=== PATIENT | female | born 1985 | race Caucasian/White ===

== ENCOUNTER 2021-07-01 09:57 | Emergency (ER) | payer BC, SELFPAY ==
--- NOTE | 2021-07-01 11:01 | XR_ITS ---
PROCEDURE INFORMATION: Exam: XR Left Hand Exam date and time: 07/01/2021 11:01 AM Age: 35 years old Clinical indication: Injury or trauma; Other: Smashed inbetween wood and trailer; Blunt trauma (contusions or hematomas); Hand; Left; Injury date: 06/30/21; Additional info: Accident// smashed hand between wood and trailer loading wood TECHNIQUE: Imaging protocol: XR Left hand. Views: 3 or more views. COMPARISON: No relevant prior studies available. FINDINGS: Bones/joints: No acute fracture or malalignment. Joint spaces are maintained. Soft tissues: Normal. IMPRESSION: No acute fracture or malalignment.
[2021-07-01 11:25] VITALS: BP 139/74; PULSE 82; RESP 14; TEMP 37.1; O2SAT 100; BMI 26.8
--- NOTE | 2021-07-01 11:56 | HMH.EDUTC ---
[facility] [place] Disposition Clinical Impression: Crushing injury of left hand Qualifiers: Encounter type: initial encounter Qualified Code(s): S67.22XA - Crushing injury of left hand, initial encounter Disposition: Home, Self-Care Condition on Discharge: Good Instructions: DI for Crush Injury, DI for Hand Pain Additional Instructions: Rest the extremity, apply ice for 15 minutes as tolerated three or four times per day, Elevate the extremity as tolerated while you are resting. Take ibuprofen for pain. I sent in a prescription to your pharmacy. Follow up with Dr. Estrada (orthopedics). I put in a referral but you need to call his office and schedule an appointment. Follow up with your regular doctor. GO TO THE ER FOR ANY WORSENING SYMPTOMS Prescriptions: Ibuprofen [Ibuprofen 600mg Tablet] 600 mg PO Q6HP PRN #30 tab PRN Reason: Mild Pain Transmission Status: Received by [id number] Referrals: Donavan Godoy MD [Primary Care Provider] - Ricardo Estrada MD [Staff Physician] - Forms: Work/School Release Time of Disposition: 12:01 Medical Decision Making - Medical Records Medical records reviewed: No: I reviewed the patient's medical records. - Jeremy Inquiry Pt receiving controlled substance: No Vital Signs: 07/01/21 11:25 07/01/21 12:09 Temperature 98.8 F 98.8 F Temperature Source Oral Pulse Rate 82 Pulse Rate [Left] 82 Respiratory Rate 14 18 Blood Pressure 139/74 Blood Pressure [Right Arm] 139/74 Blood Pressure Mean [Right Arm] 95 02 Sat by Pulse Oximetry 100 - Lab Data Lab results reviewed: No: I reviewed the patient's lab results. - Radiology Data #1 Image(s): Hand Image Reviewed: Yes I reviewed the patient's radiology image, Yes I have reviewed radiologist's interpretation Preliminary Findings: No Fracture Seen PROCEDURE INFORMATION: Exam: XR Left Hand Exam date and time: 07/01/2021 11:01 AM Age: 35 years old Clinical indication: Injury or trauma; Other: Smashed inbetween wood and trailer; Blunt trauma (contusions or hematomas); Hand; Left; Injury date: 06/30/21; Additional info: Accident// smashed hand between wood and trailer loading wood TECHNIQUE: Imaging protocol: XR Left hand. Views: 3 or more views. COMPARISON: No relevant prior studies available. FINDINGS: Bones/joints: No acute fracture or malalignment. Joint spaces are maintained. Soft tissues: Normal. IMPRESSION: No acute fracture or malalignment. [facility] [place] HPI - General Stated complaint: AO [id number] left hand pain, home accident Time Seen by Provider: 07/01/21 11:56 Mode of Arrival: Ambulatory Source of Information: Patient Limitations: No Limitations Description of Symptoms (Recalled from Triage Doc. by RN): pt has a crush injury to her L hand. this occured while loading firewood. HEENT Symptoms (Recalled from RN notes): No Resp Symptoms (Recalled from RN notes): No Skin Symptoms (Recalled from RN notes): No MS Symptoms (Recalled from RN notes): Yes (L hand pain) Functional Status (Recalled from RN notes): na - History of Present Illness Provider Complaint: She states that she smashed her left hand last night while stacking firewood. Her hand got caught between a piece of wood and the [place]. She his having pain at the base of her 5th finger. She denies any laceration or open wounds. - Related Data Previous Rx's Medication Instructions Recorded Ibuprofen [Ibuprofen 600mg 600 mg PO Q6HP PRN #30 tab 07/01/21 Tablet] Allergies Allergy/AdvReac Type Severity Reaction Status Date / Time diphenhydramine Allergy Unknown Unverified 08/12/17 15:17 [From BENADRYL] morphine [MORPHINE] Allergy Unknown Unverified 08/12/17 15:17 promethazine [From PHENERGAN] Allergy Unknown Unverified 08/12/17 15:17 pseudoephedrine Allergy Unknown Unverified 08/12/17 15:17 [From SUDAFED]
[2021-07-01 12:09] VITALS: BP 139/74; PULSE 82; RESP 18; TEMP 37.1
== END 2021-07-01 12:11 | disposition home or self-care (01) ==
PROVIDERS: Emergency Provider Nurse Practitioner Family; PCP Internal Medicine Adolescent Medicine
DX: S67.22XA Crushing injury of left hand, initial encounter (principal); W23.0XXA Caught, crushed, jammed, or pinched between moving objects, initial encounter; Y92.89 Other specified places as the place of occurrence of the external cause
CPT/HCPCS: 29125; 73130; 99202; G0463

== ENCOUNTER 2022-07-05 18:00 | Emergency (ER) | payer BC, SELFPAY ==
--- NOTE | 2022-07-05 18:09 | XR_ITS ---
PROCEDURE INFORMATION: Exam: XR Right Wrist Exam date and time: 07/05/2022 6:13 PM Age: 36 years old Clinical indication: Injury or trauma; Other: Smashed wrist in gun safe door; Blunt trauma (contusions or hematomas); Right TECHNIQUE: Imaging protocol: Radiologic exam of the Right wrist. Views: 3 or more views. COMPARISON: No relevant prior studies available. FINDINGS: Bones/joints: No visible fracture or dislocation. Soft tissues: Normal. IMPRESSION: No visible fracture or dislocation.
[2022-07-05 19:35] VITALS: BP 131/86; PULSE 85; RESP 19; TEMP 36.9; O2SAT 98; BMI 26.4
--- NOTE | 2022-07-05 20:01 | EXP.UTC ---
Discharge Plan Disposition Patient Disposition: Home, Self-Care Condition: Good Prescriptions Prescriptions: No Action ibuprofen 600 MG tablet 600 mg PO Q6HP PRN (Reason: Mild Pain) Qty: 30 0RF Referrals Follow up/Referrals: Provider,Referral, MD [Primary Care Provider] - See instructions Activity Restrictions/Add. Instructions Additional Instructions/Restrictions: *RICE, Rest the extremity, Ice 15-20 minutes 3-4 times daily, Compress- wear the rusty wrap as discussed as much as possible to help reduce swelling and pain, Elevate the extremity when at rest *Rusty wrap is for support and help control swelling, use it except in the shower. Be sure that is not to tight but not to loose either *Elevate when resting? *Ibuprofen 600-800mg every 6-8 hours as needed for pain an inflammation. If need something more can take Tylenol in between doses of Ibuprofen to help Immediately follow up with your family doctor for new or worsening of symptoms, or no noticeable improvement over the next 3-5 days Instructions Patient Instructions: How To Perform RICE (Rest, Ice, Compress, Elevate), How to Apply an Rusty Wrap Discharge ED Provider: Kaitlyn Rascon [facility] [place] HPI General Stated complaint: ao 07/04 injured R wrist Mode of Arrival: Ambulatory Source of Information: Patient Limitations: No Limitations Time Seen by Provider: 07/05/22 20:01 Description of Symptoms (Recalled from Triage Doc. by RN): PATIENT C/O INJURY TO RIGHT WRIST AFTER GETTING IT SMASHED BETWEEN THE DOOR AND GUN SAFE LAST NIGHT HEENT Symptoms (Recalled from RN notes): No Resp Symptoms (Recalled from RN notes): No Skin Symptoms (Recalled from RN notes): No MS Symptoms (Recalled from RN notes): Yes Functional Status (Recalled from RN notes): WNL History of Present Illness Provider Complaint: Patient states that they was moving a gun safe last night when it slipped and pinned her right wrist between the door knob and the safe States that she has been having pain in the wrist ever since Related Data Previous Rx's Medication Instructions Recorded ibuprofen 600 mg tablet 600 mg PO Q6HP PRN Mild Pain #30 07/01/21 tabs Allergies Allergy/AdvReac Type Severity Reaction Status Date / Time diphenhydramine Allergy Unknown Verified 07/05/22 19:49 [From BENADRYL] morphine [MORPHINE] Allergy Unknown Verified 07/05/22 19:49 promethazine [From PHENERGAN] Allergy Unknown Verified 07/05/22 19:49 pseudoephedrine Allergy Unknown Verified 07/05/22 19:49 [From SUDAFED] Worker's Comp Is this a Worker's Comp case?: No PFSH [facility] Medical History (Updated 07/05/22 @ 19:47 by Clarita Raya RN) Anxiety Kidney stone Seizure Surgical History (Updated 07/05/22 @ 19:47 by Clarita Raya RN) History of cholecystectomy History of tonsillectomy Social History (Updated 07/05/22 @ 19:47 by Clarita Raya RN) Smoking Status: Unknown if ever smoked alcohol intake: never current occupational status: other Travel in the last 8 weeks: None ROS Obtained: Yes All systems reviewed & no additional complaints except as documented and Yes Systems reviewed as appropriate & no additional complaints except as documented ENT Ears, Nose, Mouth, and Throat: Reports system reviewed and no additional complaints, except as documented and Reports as per HPI Cardiovascular Cardiovascular: Reports system reviewed and no additional complaints, except as documented and Reports as per HPI Respiratory Respiratory: Reports system reviewed and no additional complaints, except as documented and Reports as per HPI Musculoskeletal Musculoskeletal: Reports system reviewed and no additional complaints, except as documented, Reports as per HPI and Reports other (Pain in right wrist since last night after getting it pinned by gunsafe) Physical Exam General General appearance: alert and in no apparent distress Respiratory Respiratory exam: Present normal lung sounds bilaterall
[2022-07-05 20:12] VITALS: BP 131/86; PULSE 85; RESP 19; TEMP 36.9; O2SAT 98
== END 2022-07-05 20:15 | disposition home or self-care (01) ==
PROVIDERS: Emergency Provider Nurse Practitioner
DX: S67.31XA Crushing injury of right wrist, initial encounter (principal); W23.0XXA Caught, crushed, jammed, or pinched between moving objects, initial encounter
CPT/HCPCS: 73110; 99212; G0463

== ENCOUNTER 2024-02-08 10:41 | Emergency (ER) | payer BC, SELFPAY ==
[2024-02-08 10:45] VITALS: BP 133/81; PULSE 70; RESP 20; TEMP 36.8; O2SAT 100; BMI 31.4
--- NOTE | 2024-02-08 10:50 | PC.NURSE ---
LACERATION CLEANED WITH HIBICLENSE AND STERILE WATER AT THIS TIME
--- NOTE | 2024-02-08 10:51 | XR_ITS ---
PROCEDURE INFORMATION: Exam: XR Left Hand Exam date and time: 02/08/2024 10:50 AM Age: 38 years old Clinical indication: Injury or trauma; Other: Smashed 3rd digit; Crushing; Left; Middle finger; Injury details: Smashed, open wound TECHNIQUE: Imaging protocol: Radiologic exam of the left hand. Views: 3 or more views. COMPARISON: CR XR HAND LT MIN 3V 07/01/2021 11:20 AM FINDINGS: Bones/joints: There is no evidence of acute fracture.There is no evidence of malalignment or dislocation. Soft tissues: Normal. IMPRESSION: There is no evidence of acute fracture.There is no evidence of malalignment or dislocation.
--- NOTE | 2024-02-08 10:53 | EXP.UTC ---
Discharge Plan Disposition Patient Disposition: Home, Self-Care Condition: Good Prescriptions Prescriptions: New cephalexin 500 mg capsule 500 mg PO QID Qty: 7 0RF No Action propranolol 60 mg capsule,extended release 24 hr 60 mg PO DAILY Patient Comments: TAKE 1 CAPSULE BY MOUTH ONCE DAILY (DO NOT CRUSH, CHEW OR SPLIT) sertraline 25 mg tablet 25 mg PO DAILY Patient Comments: TAKE 1 TABLET BY MOUTH ONCE DAILY oxcarbazepine 600 mg tablet 600 mg PO DAILY Emgality Pen 120 mg/mL pen injector 120 mg SQ MONTHLY Referrals Follow up/Referrals: Flor Lubin PA [Primary Care Provider] - See instructions Activity Restrictions/Add. Instructions Additional Instructions/Restrictions: Keep the wound clean and dry. Watch the wound for signs of infection, such as redness, swelling, drainage, fever. etc. Take tylenol or ibuprofen for pain. Follow up with your regular doctor. GO TO THE ER FOR ANY WORSENING SYMPTOMS OR CONCERNS. 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 She has a skin avulsion injury to the medial aspect of that finger tip. She denies any other injury or complaints. Her tetanus immunization is up to date. Related Data Home Medications Medication Instructions Recorded Confirmed galcanezumab-gnlm 120 mg/mL 120 mg SQ MONTHLY 02/08/24 02/08/24 subcutaneous pen injector (Emgality Pen) oxcarbazepine 600 mg tablet 600 mg PO DAILY 02/08/24 02/08/24 propranolol 60 mg capsule,24 60 mg PO DAILY 02/08/24 02/08/24 hr,extended release sertraline 25 mg tablet 25 mg PO DAILY 02/08/24 02/08/24 Previous Rx's Medication Instructions Recorded cephalexin 500 mg capsule 500 mg PO QID #7 caps 02/08/24 Allergies Allergy/AdvReac Type Severity Reaction Status Date / Time diphenhydramine Allergy Unknown Verified 07/05/22 19:49 [From BENADRYL] morphine [MORPHINE] Allergy Unknown Verified 07/05/22 19:49 promethazine [From PHENERGAN] Allergy Unknown Verified 07/05/22 19:49 pseudoephedrine Allergy Unknown Verified 07/05/22 19:49 [From SUDAFED] [facility] Disclaimer: The information contained in this section may have been updated after the patient was seen, as this information can be updated by other users. Medical History (Updated 02/08/24 @ 12:17 by Saeid Hollingsworth APRN) Seizure Kidney stone Anxiety Surgical History (Updated 07/05/22 @ 19:47 by Clarita Raya RN) History of tonsillectomy History of cholecystectomy Social History (Updated 07/05/22 @ 20:07 by Kaitlyn Rascon APRN) Smoking Status: Unknown if ever smoked alcohol intake: never current occupational status: other Travel in the last 8 weeks: None ROS Obtained: Yes All systems reviewed & no additional complaints except as documented Constitutional Constitutional: Denies chills and Denies fever(s) Eyes Eyes: Denies eye discharge ENT Ears, Nose, Mouth, and Throat: Denies dizziness, Denies otalgia and Denies sore throat Cardiovascular Cardiovascular: Denies chest pain Respiratory Respiratory: Denies shortness of breath, Denies chest congestion, Denies cough, Denies stridor and Denies wheezing Gastrointestinal Gastrointestingal: Denies nausea or vomiting Musculoskeletal Musculoskeletal: Reports system reviewed and no additional complaints, except as documented and Denies arthralgias Integumentary/Breasts Skin/Breast: Reports as per HPI and Reports wounds Neurologic Neurologic: Denies dizziness and Denies paresthesias Allergic/Immunologic Allergic/Immunologic: Denies wheezing Physical Exam General General appearance: alert and in no apparent distress Head Head exam: atraumatic, normocephalic and normal inspection Eye Eye exam: Present normal appearance, PERRL and EOMI ENT ENT exam: Present normal exam, normal oropharynx, mucous membranes moist, TM's normal bilaterally and normal external ear exam Neck Neck exam: Present normal inspection, full ROM and trachea midline; Absent meningismus or lymphadenopathy Chest Chest inspection: Present normal inspection and symmetric chest wall rise; Absent tenderness Respiratory Respiratory exam: Present normal lung sounds bilaterally; Absent respiratory distress Cardiovascular Cardiovascular exam: Present regular rate and normal rhythm; Absent JVD Abdominal Exam Abdominal exam: Present soft and normal bowel sounds; Absent distention, tenderness or guarding Extremities Exam Extremities exam: Present normal inspection, full ROM and normal capillary refill; Absent calf tenderness Back Exam Back exam: Present normal inspection; Absent tenderness Neurological Exam Neurological exam: Present alert and oriented X3 Psychiatric Psychiatric exam: Present normal affect and normal mood Skin Skin exam: Present warm, dry, intact and normal color Lymphatic Lymphatic Findings: no adenopathy Medical Decision Making Medical Records Medical records reviewed: No I reviewed the patient's medical records. Jeremy Inquiry Pt receiving controlled substance: No Orders (Tests/Meds): ORDERS Category Date Time Status Hand XR left minimum 3 views [XR hand LT min 3V] Stat Exams 02/08/24 10:51 Ordered Radiology Data #1: Image(s): Hand Image Reviewed: Yes I reviewed the patient's radiology image and Yes I have reviewed radiologist's interpretation Preliminary Findings: Normal/NAD Accession No. : [id number] Patient Name / ID : Melissa Slade / [id number] Exam Date : 02/08/2024 10:50:10 ( Final ) Study Comment : Sex / Age : F / 38Y Creator : DELONTE HAWLEY MD Dictator : Educational Program Director : Assembly Cleaner : DELONTE HAWLEY MD Approver2 : Report Date : 02/08/2024 12:13:01 My Comment : PROCEDURE INFORMATION: Exam: XR Left Hand Exam date and time: 02/08/2024 10:50 AM Age: 38 years old Clinical indication: Injury or trauma; Other: Smashed 3rd digit; Crushing; Left; Middle finger; Injury details: Smashed, open wound TECHNIQUE: Imaging protocol: Radiologic exam of the left hand. Views: 3 or more views. COMPARISON: CR XR HAND LT MIN 3V 07/01/2021 11:20 AM FINDINGS: Bones/joints: There is no evidence of acute fracture.There is no evidence of malalignment or dislocation. Soft tissues: Normal. IMPRESSION: There is no evidence of acute fracture.There is no evidence of malalignment or dislocation. Procedures Risk/Benefits of Procedure(s) Were Explained: Yes Laceration Laceration 1: Site: finger Side (If applicable): left Size (cm): 1 Description: flap and other (avulsion of skin) Depth: simple, single layer Pre-repair: wound explored, irrigated extensively and deep structures intact Skin layer closed with: Dermabond (the avulsed skin was too thin to sew back in place, so it was repaired with dermabond. The wound involved the finger tip and not an area that bends, so glue should hold the wound closed. good closure was obtained and the edges were approximated well. she tolerated this well )
[2024-02-08 12:15] VITALS: BP 133/81; PULSE 70; RESP 20; TEMP 36.8; O2SAT 100
== END 2024-02-08 12:18 | disposition home or self-care (01) ==
PROVIDERS: Emergency Provider Nurse Practitioner Family; PCP Physician Assistant
DX: S61.203A Unspecified open wound of left middle finger without damage to nail, initial encounter (principal); W23.0XXA Caught, crushed, jammed, or pinched between moving objects, initial encounter
CPT/HCPCS: 12001; 73130; 99213; 99214; G0463

== ENCOUNTER 2024-02-23 07:00 | Outpatient (RCR) | payer BC, SELFPAY | END 2024-04-01 13:50 | disposition home or self-care (01) | LOC: PT 07:00 | PROVIDERS: Visit Provider Podiatrist Foot & Ankle Surgery | DX: M72.2 Plantar fascial fibromatosis (principal); M67.02 Short Achilles tendon (acquired), left ankle | CPT/HCPCS: 20560; 97010; 97014; 97035; 97110; 97112; 97140; 97163; 97164; 97530; G0283 ==